=== PATIENT | female | born 1990 | race Caucasian/White ===

== ENCOUNTER → 2016-06-08 17:43 | Outpatient (CLI) | payer MEDICAID ==
[~2016-06-08 17:43] MED LIST: IBUPROFEN600 MG PO; PERCOCET 5-3251 TAB PO; PRENATAL COMPLE1 TAB PO
[2016-07-25 09:18] VITALS: BMI 32.2
== END | disposition home or self-care (01) ==
LOC: D.LDO 17:43
DX: O36.8130 Decreased fetal movements, third trimester, not applicable or unspecified (principal); Z3A.31 31 weeks gestation of pregnancy

== ENCOUNTER 2016-06-30 22:09 | Outpatient (CLI) | payer MEDICAID ==
[2016-06-30 22:24] LABS: APPEARANCE HAZY (CLEAR); BILIRUBIN NEGATIVE (NEGATIVE); COLOR YELLOW (YELLOW); GLUCOSE NEGATIVE (NEGATIVE); KETONE SMALL mg/dL (NEGATIVE); LEUKOCYTE ESTERASE TRACE (NEGATIVE); NITRITE NEGATIVE (NEGATIVE); PROTEIN NEGATIVE (NEGATIVE); UROBILINOGEN NORMAL (NORMAL)
[2016-06-30 22:28] LABS: BACTERIA MODERATE /hpf (NONE SEEN); MUCUS <1+ /lpf (NONE SEEN); RED CELLS - URINE 0-5 /hpf (0-5)
[2016-07-25 09:18] VITALS: BMI 32.2
== END 2016-06-30 22:54 | disposition home or self-care (01) ==
LOC: D.LDO 22:09
PROVIDERS: Obstetrics & Gynecology
DX: Z34.83 Encounter for supervision of other normal pregnancy, third trimester (principal); Z3A.34 34 weeks gestation of pregnancy; R10.9 Unspecified abdominal pain

== ENCOUNTER → 2016-07-10 12:52 | Outpatient (CLI) | payer MEDICAID ==
[2016-07-10 14:30] LABS: BASOPHILS 0.1 % (0.0-2.0); EOSINOPHILS 1.2 % (0-7); HEMATOCRIT 32.2 % (36.0-48.0); HEMOGLOBIN 11.3 g/dL (12-16); IMMATURE GRANULOCYTES 0.3 % (0-5); LYMPHOCYTES 20.4 % (15-50); MCH 32.8 pg (26.0-34.0); MCHC 35.1 g/dL (31.0-37.0); MCV 93.3 fL (80.0-100.0); MONOCYTES 8.9 % (2-11); NEUTROPHILS 69.1 % (40-80); PLATELET COUNT 192 10x3/uL (130-400); RBC 3.45 10x6/uL (4.00-5.40); RDW 14.1 % (11.5-14.5); WBC 7.6 10x3/uL (4.8-10.8)
[2016-07-10 15:10] LABS: ALBUMIN 2.6 g/dL (3.4-5.0); ALKALINE PHOSPHATASE 92 U/L (46-116); ALT (SGPT) 27 U/L (10-68); BILIRUBIN - DIRECT 0.12 mg/dL (0.00-0.30); BILIRUBIN - INDIRECT 0.31 mg/dL (0.00-1.00); BILIRUBIN - TOTAL 0.43 mg/dL (0.2-1.3); CALC OSMOLALITY 275 mosm/kg (275-300); CALCIUM 8.1 mg/dL (8.5-10.1); CARBON DIOXIDE 22.8 mmol/L (21.0-32.0); CHLORIDE - SERUM 105 mmol/L (98-107); CREATININE - SERUM 0.4 mg/dL (0.6-1.3); GLUCOSE 90 mg/dL (74-106); POTASSIUM - SERUM 3.3 mmol/L (3.5-5.1); SODIUM 140 mmol/L (136-145); UREA NITROGEN 4 mg/dL (7-18); URIC ACID 3.5 mg/dL (2.6-7.2); eGFR NON AFRICAN AMERICAN > 90 mL/min (90-120)
[2016-07-25 09:18] VITALS: BMI 32.2
== END | disposition home or self-care (01) ==
LOC: D.LDO 12:52
PROVIDERS: Obstetrics & Gynecology
DX: O16.3 Unspecified maternal hypertension, third trimester (principal); Z3A.35 35 weeks gestation of pregnancy

== ENCOUNTER → 2016-07-19 10:20 | Outpatient (CLI) | payer MEDICAID ==
[2016-07-19 12:38] LABS: APPEARANCE SLT CLOUDY (CLEAR); COLOR YELLOW (YELLOW)
[2016-07-19 12:39] LABS: BACTERIA MODERATE /hpf (NONE SEEN); BILIRUBIN NEGATIVE (NEGATIVE); EPITHELIAL CELLS 0-5 /hpf (0-5); GLUCOSE NEGATIVE (NEGATIVE); KETONE NEGATIVE (NEGATIVE); LEUKOCYTE ESTERASE NEGATIVE (NEGATIVE); MUCUS <1+ /lpf (NONE SEEN); NITRITE NEGATIVE (NEGATIVE); PROTEIN NEGATIVE (NEGATIVE); RED CELLS - URINE 0-5 /hpf (0-5); UROBILINOGEN NORMAL (NORMAL); WHITE CELLS - URINE OCC /hpf (0-5)
[2016-07-19 12:40] LABS: AMORPHOUS SEDIMENT <1+ /lpf (NONE SEEN)
== END | disposition home or self-care (01) ==
LOC: D.LDO 10:20
PROVIDERS: Specialist
DX: Z34.83 Encounter for supervision of other normal pregnancy, third trimester (principal); Z3A.37 37 weeks gestation of pregnancy; R10.2 Pelvic and perineal pain; M54.9 Dorsalgia, unspecified

== ENCOUNTER → 2016-07-20 12:40 | Outpatient (CLI) | payer MEDICAID | END | disposition home or self-care (01) | LOC: D.LDO 12:40 | DX: Z34.83 Encounter for supervision of other normal pregnancy, third trimester (principal); Z3A.37 37 weeks gestation of pregnancy ==

== ENCOUNTER → 2016-07-24 08:50 | Outpatient (CLI) | payer MEDICAID ==
[~2016-07-24 08:50] MED LIST changes: -IBUPROFEN600 MG PO; -PERCOCET 5-3251 TAB PO
[2016-07-24 09:18] LABS: APPEARANCE HAZY (CLEAR); BILIRUBIN NEGATIVE (NEGATIVE); COLOR YELLOW (YELLOW); GLUCOSE NEGATIVE (NEGATIVE); KETONE NEGATIVE (NEGATIVE); LEUKOCYTE ESTERASE NEGATIVE (NEGATIVE); NITRITE NEGATIVE (NEGATIVE); PROTEIN NEGATIVE (NEGATIVE); UROBILINOGEN NORMAL (NORMAL)
[2016-07-25 09:18] VITALS: BMI 32.2
== END | disposition home or self-care (01) ==
LOC: D.LDO 08:50
PROVIDERS: Specialist
DX: Z34.83 Encounter for supervision of other normal pregnancy, third trimester (principal); Z3A.37 37 weeks gestation of pregnancy

== ENCOUNTER 2016-07-24 20:15 | Inpatient (IN) | payer MEDICAID ==
[~2016-07-24] VITALS: Ht 167.6 cm; Wt 90.5 kg
[2016-07-24 21:11] LABS: HEMATOCRIT 33.1 % (36.0-48.0); HEMOGLOBIN 11.8 g/dL (12-16); MCH 33.6 pg (26.0-34.0); MCHC 35.6 g/dL (31.0-37.0); MCV 94.3 fL (80.0-100.0); MEAN PLATELET VOLUME 10.6 fL (7.4-10.4); RBC 3.51 10x6/uL (4.00-5.40); RDW 14.2 % (11.5-14.5); WBC 9.2 10x3/uL (4.8-10.8)
[2016-07-24] MEDS ORDERED: PRENATAL COMPLE1 TAB PO (23:47)
[2016-07-24 23:49] VITALS: BP 126/70; BMI 32.2
--- NOTE | 2016-07-25 02:30 | NUR ---
PT REMAINS IN ROOM 1277 AWAITING BTL FOR EARLY TO MID DAY TODAY. PT KEPT NPO FOR PROCEDURE AND VERBALIZES UNDERSTANDING. PT RESTING WITH EYES CLOSED AT THIS TIME. RESPIRATIONS REGULAR, NO S/S OF DISTRESS NOTED. S/O REMAINS AT BEDSIDE. BED IN LOW POSITION WITH UPPER SIDE RAILS RAISED X2. CL AND PHONE WITHIN PT REACH. WILL CONT TO MONITOR.
--- NOTE | 2016-07-25 03:10 | NUR ---
INFANT BROUGHT TO ROOM BY RN FOR . RN REMAINED AT BEDSIDE, LATCHED WELL, PT DENIES NEED FOR ASSISTANCE. NURSING AT THIS TIME AND SWALLOWING WITH GOOD SUCK NOTED. CL PLACED WITHIN PT REACH, INSTRUCTED TO CALL IF ASSISTANCE WAS NEEDED, VERBALIZED UNDERSTANDING. S/O AT BEDSIDE.
--- NOTE | 2016-07-25 03:47 | NUR ---
ROUNDS MADE. PT SITTING IN HIGH FOWLERS POSITION WITH SKIN TO SKIN, REPORTS THAT NURSED FOR 20 MINUTES ON RIGHT BREAST AND 10 MINUTES ON LEFT. REQUEST BE TAKEN BACK TO NBN. RN ASSISTED TO BATHROOM, PT VOIDED 400 MLS. MODERATE AMT RUBRA LOCHIA NOTED TO PERIPAD, NO CLOTS NOTED. ASSISTED BACK TO BED. DENIES NEEDS AT THIS TIME. S/O REMAINS AT BEDSIDE. BED IN LOW POSITION WITH UPPER SIDE RAILS RAISED X2. CL AND PHONE WITHIN REACH.
--- NOTE | 2016-07-25 04:26 | NUR ---
NBN REPORTS THAT INFANT IS FUSSY AND UNCONSOLABLE AND CONT TO ROOT IN CRIB. RN TAKES INFANT BACK TO PT. PT POSITIONED AND INFANT LATCHED ONTO LEFT BREAST AND NURSING WHEN RN LEFT ROOM. PT DENIES NEED FOR ASSISTANCE AND STATES THAT SHE WILL CALL USING THE CALL LIGHT.
--- NOTE | 2016-07-25 05:03 | NUR ---
ROUNDS MADE. PT BONDING WITH . REQUESTS THAT BE TAKEN BACK TO NBN AT THIS TIME. DENIES NEEDS AT THIS TIME. SPOUSE REMAINS AT BEDSIDE. BED IN LOW POSITION WITH UPPER SIDE RAILS RAISED X2. CL AND PHONE WITHIN PT REACH.
--- NOTE | 2016-07-25 06:38 | NUR ---
NEW BAG LR HUNG @ 125 MLS/HR. EPIFOAM, TUXS, AND DERMAPLAST GIVEN WITH VERBAL INSTRUCTION ON USE. PT VERBALIZED UNDERSTANDING, STATES THAT SHE REMEMBERS USING THEM FROM PREVIOUS . S/O REMAINS AT BEDSIDE. BED IN LOW POSITION WITH UPPER SIDE RAILS RAISED X2. DENIES PAIN AT THIS TIME. CL AND PHONE WITHIN REACH.
--- NOTE | 2016-07-25 07:33 | NUR ---
infant taken to room via crib by nursery nurse.
[2016-07-25 08:15] VITALS: BP 114/66
--- NOTE | 2016-07-25 08:15 | NUR ---
AM assessment completed as charted on flowsheet. Pt denies pain or discomfort at this time and states understanding that pain meds are ordered but not scheduled medications. Fundus firm at u/1 with light bleeding noted to rai pad, she denies any clots with voids, denies any questions about rai care. Explained that bilateral tubal ligation would not happen until around noon or later today and she confirms she wants to wait and have it done today. Reenforced that she can not have anything to eat or drink includes icechips until after surgery, she states"I'm ok with that" IV saline locked at this time and will restart prior to her surgery. Denies any needs or questions at this time. Side rails up x2 with phone and call light in reach.
[2016-07-25 09:18] VITALS: Ht 167.6 cm; Wt 90.5 kg
--- NOTE | 2016-07-25 09:41 | NUR ---
Jacklyn Lynn [birth year] S: Patient states she feels well, we be having her tubes tied some time today, wasn't able to do so last night because she delivered at 12am. States this is her second baby, two girls, did nurse her other daughter. O: Patient sitting up in bed holding , sleeping, FOB walked in room. Congratulated on delivery, asked how is nursing, are her nipples sore? Patient states nursing is good, infant latches great, her left nipple is kale sore when baby first latches. Pain and shouldn't be associated, sensitive: is normal but not pain. Explain how to verify is latched correct. Turn baby tummy to tummy, nose opposite of nipple, gently support head and allow infant to self-latch. If she still experiences pain let us know, we could observe infant latch. Encouraged to continue to latch on demand, upon showing signs of feeding cues ( provided handout and explain what feeding cues are). Supply and demand, what infant takes out your body will make more of. Explain breast milk composition. Provided handouts and explained on what to expect the first week, engorgement, starting a feeding, waking a sleeping baby, and positions for . Asked if she had any questions, concerns, or needs, all declined. Will follow up. A: Patient appears confident with . P: Continue to support exclusively . Octavio Jean, CLC
--- NOTE | 2016-07-25 09:45 | NUR ---
Pt sitting up with to breast. Denies pain or discomfort and has no needs at this time. Call light in reach with side rails up x 2.
--- NOTE | 2016-07-25 10:44 | NUR ---
Pt sitting on couch visiting with family, infant in room at this time. Denies pain or discomfort. Pt intructed that she will need to remove all jewlery prior to going up to surgery. She does so at this time and gives them to her sig other. No needs voiced at this time.
--- NOTE | 2016-07-25 11:45 | NUR ---
Received call to pre-op pt for surgery. Pt up to bathroom as instructed to empty her bladder. IV flushed easily with 5ml NS, LR reconnected and infusing by gravity at this time. SCD's placed on lower legs and there function explained to pt. VSS as charted on flowsheet. Anesthesia contacted for pre-op orders, spoke with A Long silo tender. Pt denies any questions or concerns. taken to NBN via crib per pt and spouse request.
--- NOTE | 2016-07-25 12:10 | NUR ---
Preop meds given as charted on emar and surgery checklist completed. Pt able to transfer self to [facility] without any assistance. 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
--- NOTE | 2016-07-25 14:20 | NUR ---
Pt received to room 1257 by bed, transfered with assistance. Pt is awake and alert, rates pain 3/10 and states feels more cramping and some burning. Motrin offered and she is agreeable. she is able to move her toes only at this time. Post vital signs stable and charted/verified on flowsheet. She denies nausea and ask for sprite to drink, this is provided along with orange jello. Side rails up x 2 with call light in reach and family at bedside.
[2016-07-25 14:22] VITALS: BP 114/70
[2016-07-25 14:30] VITALS: BP 113/69
--- NOTE | 2016-07-25 14:30 | NUR ---
Motrin given as charted on emar. White board updated, pt calls nursery so that infant can be brought to room. Thank you box given at this time. Pt denies any other needs. Side rails up x 2 with call light in reach.
[2016-07-25 14:45] VITALS: BP 106/63
--- NOTE | 2016-07-25 15:15 | NUR ---
pt tilted to her right side with infant in crib at bedside. Denies pain or discomfort. large cup of ice provided per request, no other needs at this time.
--- NOTE | 2016-07-25 16:46 | NUR ---
Pt sitting up in bed wiht to breast. She is beginning to move both legs more but continue to complain of numbness. Denies pain at this time. Large ice water provided per request. Side rails up x 2 with phone and call light in reach. Family at bedside.
[2016-07-25 16:53] LABS: BASOPHILS 0.2 % (0.0-2.0); EOSINOPHILS 0.5 % (0-7); HEMATOCRIT 31.4 % (36.0-48.0); HEMOGLOBIN 10.9 g/dL (12-16); IMMATURE GRANULOCYTES 0.3 % (0-5); LYMPHOCYTES 16.8 % (15-50); MCH 33.5 pg (26.0-34.0); MCHC 34.7 g/dL (31.0-37.0); MEAN PLATELET VOLUME 10.4 fL (7.4-10.4); MONOCYTES 6.8 % (2-11); NEUTROPHILS 75.4 % (40-80); PLATELET COUNT 205 10x3/uL (130-400); RBC 3.25 10x6/uL (4.00-5.40); RDW 14.3 % (11.5-14.5); WBC 9.4 10x3/uL (4.8-10.8)
[2016-07-25 17:00] LABS: MCV 96.6 fL (80.0-100.0)
--- NOTE | 2016-07-25 18:39 | NUR ---
Pt continue to complain of numbness in both thighs, she is able to raise her bottom up but is not steady. She is agreeable to use a bedpan. Privacy provided by friends/family leaving room. Voids 300ml dark urine on bedpan without complaint. Warm wet wash cloths provided and pt does rai care per herself, than she puts on rai pad/panties. Chux and towels changed. SCD's removed since she is moving herself around in bed. Rates pain at 3/10 pain med offered but pt ask that wait until after infant feeding at 1915 and understands this will be reported to pm shift. Denies any needs at this time. Infant in room and friends allowed back in room. Side rails up x 2 with call light in reach.
--- NOTE | 2016-07-25 19:15 | NUR ---
ASSESSMENT COMPLETE. PT SITTING UP IN BED INFANT. REPORTING PAIN 5/10 IN INCISIONAL AREA. PRN PAIN MED GIVEN ORDERED. SEE EMAR. PT ALERT AND ORIENTED X3. TALKING TO S/O THAT IS PRESENT IN ROOM. LUNGS CTA IN ALL LOBES BILATERALLY. RESPIRATIONS EASY AND UNLABORED. BS PRESENT X4. REPORTS IS PASSING GAS. BANDAGES TO INCISION C/D/I. AREA WITHOUT S/S INFECTION. FUNDUS FIRM AND MIDLINE 1FB BELOW UMBILLICUS. LOCHIA SCANT-SMALL. NO CLOTS. PT PERFORMING OWN MIS CARE. HAS +2 PITTING EDEMA TO BLE. HAS FULL SENSATION TO BLE. INSTRUCTED TO ASK FOR ASSISTANCE PRIOR TO AMBULATING. PT AGREES. PT IS GOING TO SHOWER LATER TONIGHT. IV TO R HAND DC'D WITH TIP INTACT. BANDAGE AND PRESSURE TO SITE. PT TOLERATED WELL. LEMON QUECHAN SODA GIVEN PER REQUEST. BED LOW. SR UP X2. CALL LIGHT IN REACH. NO OTHER NEEDS VOICED.
--- NOTE | 2016-07-25 20:30 | NUR ---
Pt into shower with assistance of . Has linens for shower. Provided with toothbrush and toothpaste per pt request. Denies any other needs or assistance.
--- NOTE | 2016-07-25 20:50 | NUR ---
Pt completed shower without difficulty. S/O assisted. Provided s/o with linens for couch. Pt reports feeling better after showering. Denies any needs or concerns. Call light in reach. Bed low. SR upx2.
[2016-07-25 21:00] VITALS: BP 125/68
--- NOTE | 2016-07-25 22:02 | NUR ---
Pt requesting prn motrin for cramping. See EMAR for social media developer. Denies any other needs or concerns. S/O at bedside.
--- NOTE | 2016-07-26 | NUR ---
Pt resting with eyes closed. Call light in reach. Bed low. SR upx2. S/O in room also sleeping.
--- NOTE | 2016-07-26 00:01 | NUR ---
Fundus firm and midline. 1fb below umbillicus. Locha scant-small. No clots.
--- NOTE | 2016-07-26 01:04 | NUR ---
Pt requesting prn pain med. States "my stomach is sore". PRN med administered as ordered. See EMAR. Denies any other needs or concerns. Holding in arms. Call light in reach. Bed low. SR upx2.
--- NOTE | 2016-07-26 03:00 | NUR ---
PT sleeping. Call light in reach. Bed low. SR upx2.
--- NOTE | 2016-07-26 04:45 | NUR ---
Pt requesting prn pain med for cramping. See EMAR for medical center manager. Pt also showed nurse bandage on abd is coming off. Appears to have gotten wet during shower last night and began to peel off from skin. Removed old dressing and applied clean dressing (bandaid) to site. Site WNL. No redness/edema at site. No s/s infection. Encouraged handwashing prior to touching area and reviewed care of incision. Pt verbalizes understanding to all. No other questions or concerns voiced. Bed low. SR upx2. Call light in reach.
[2016-07-26 04:56] VITALS: BP 127/76
[2016-07-26 06:14] LABS: RAPID PLASMA REAGIN Non Reactive (Non Reactive)
--- NOTE | 2016-07-26 06:20 | NUR ---
Pt sitting up in bed. Denies any needs or concerns. Fundus firm and midline. 1FB below umbillicus. Scant lochia. Rai care being performed per pt. Denies questions r/t rai care.
--- NOTE | 2016-07-26 07:45 | NUR ---
Pt sitting in chair at bedside with infant to breast, denies needs at this time. Will return to complete am assessment when pt has finished feeding.
[2016-07-26] MEDS ORDERED: IBUPROFEN600 MG PO (08:53)
[2016-07-26] MEDS ORDERED: PERCOCET 5-3251 TAB PO (08:54)
--- NOTE | 2016-07-26 09:30 | NUR ---
Am assessment completed as charted on flowsheet. fundus firm at u/u with light bleeding per pt and no clots noted. Bandage to umbilical area intact, clean and dry. Pt c/o being sore and "tender" at umbilical area and understands that is from tubal ligation, rates at 3/10 and request Iburporfen if possible. Denies any other needs at this time. Family at bedside, side rails up x 2 with phone and call light in reach.
[2016-07-26 10:00] VITALS: BP 130/82
--- NOTE | 2016-07-26 10:00 | NUR ---
Meds given as charted on emar. Additional rai pads and mesh pants placed in bathroom.
--- NOTE | 2016-07-26 11:30 | NUR ---
Called to room, pt request pain med for abd cramping and burning that she said has gotten worse since she has been up walking, reassured this is expected. Rates pain at 7/10, Percocet 10/325 given as charted on emar.
--- NOTE | 2016-07-26 12:30 | NUR ---
Pt rates pain at 2/10. Nursery nurse at bedside to discharge . Pt will call when d/c completed.
--- NOTE | 2016-07-26 13:00 | NUR ---
Verbal and written d/c instructions given without question or concerns. Pt given printed scripts for Percocet 5/325mg and Motrin 600mg with monographs on each. States understanding of post care at home and s/s of infection to watch for. buckled into carrier and volunteer notified for wheelchair.
--- NOTE | 2016-07-26 13:07 | NUR ---
pt taken out to private car by wheelchair holding in carrier. Home with family.
--- NOTE | 2016-07-27 13:38 | OP ---
PATIENT NAME: MANJEET MARTE MEDICAL RECORD: [id number] :89 LOCATION:[id number] ADMISSION DATE:07/24/16 SURGEON: DEMI KHAN MD DATE OF OPERATION: 07/25/2016 PREOPERATIVE DIAGNOSES: 1. Status post term spontaneous vaginal delivery. 2. Desired sterility. POSTOPERATIVE DIAGNOSES: 1. Status post term spontaneous vaginal delivery. 2. Desired sterility. SURGEON: Demi Khan MD ANESTHESIA: Epidural anesthesia with Javy Rodriguez CRNA PROCEDURE: sterilization via bilateral distal salpingectomy/fimbriectomy. FINDINGS: Normal appearing uterus, ovaries and tubes bilaterally. DESCRIPTION OF PROCEDURE: After informed consent was given, the patient was taken to the operating room where epidural anesthesia was then placed, bolused and found to be adequate. She was placed in a dorsal supine position. A Mckeon catheter was already in place with clear urine return noted. She was prepped and draped sterilely. An infraumbilical incision was then made with the scalpel in a transverse fashion and carried down to the underlying layer of fascia. The fascia was incised in the midline and extended bilaterally with the Reyna scissors. The rectus muscles were identified. The peritoneum was identified and grasped with 2 hemostats. This was entered sharply with Metzenbaum scissors. The [facility] retractors were then utilized to allow visualization of the left fallopian tube. The left fallopian tube was visualized, grasped with a Lockridge clamp and followed out to the fimbriated edge. A second Lockridge was used to grasp the fallopian tube near the fimbria and these were held gently on upward traction as a defect was created in the mesosalpinx with the Bovie cautery, 2 hemostats were then used to clamp the more proximal portion of the fallopian tube and the distal mesosalpinx. The Bovie cautery was then used to excise the fallopian tube and fimbria and a Pap this was passed off the field as specimen. The 2 pedicles were suture ligated with 3-0 Vicryl stick ties. Excellent hemostasis was noted. Attention was then turned to the opposite side where the right fallopian tube was visualized, grasped with a Lockridge clamp, followed out to its fimbriated edge and then grasped once again near the fimbria themselves. The Babcocks were slightly elevated to allow exposure of the mesosalpinx, defect was then created in the mesosalpinx with the Bovie cautery in 2 [address] and 3 hemostats were used to then clamp the more proximal portion of the fallopian tube and the mesosalpinx in the more distal and the distal regions. The Bovie cautery was then used to excise the fallopian tube and fimbria and this was passed off the field as specimen. The 3 pedicles were suture ligated with 3-0 Vicryl stick ties. Excellent hemostasis was noted. The opposite adnexa was again observed and noted to be hemostatic. The fascia and peritoneum were closed in 1 layer with 0 Vicryl in a running fashion, locking the first suture. The subcutaneous tissue was closed in 2 layers with 3-0 Vicryl and the skin was closed with 3-0 Monocryl in a subcuticular fashion. Dermabond and dressing were applied. Clear urine was noted at completion of the OPERATIVE REPORT [id number] MANJEET MARTE procedure. The patient tolerated procedure well. Sponge, lap, needle and instrument counts reported correct times 2. ESTIMATED BLOOD LOSS: Minimal. SPECIMENS: 1. Left distal fallopian tube/fimbria. 2. Right distal fallopian tube/fimbria. COMPLICATIONS: None. TRANSINT:[id number] Voice Confirmation ID: [id number] DOCUMENT ID: [id number] DEMI KHAN MD at 1338 CC: [id number] DICTATION DATE: 07/26/16901 PLANNING AIDE: 07/26/16920 DIS IN 07/26/16 [id number] [place] [address]
== END 2016-07-26 13:08 | disposition home or self-care (01) | DRG 767 ==
LOC: D.LDO 20:15 → D.LD 20:37
PROVIDERS: ADMIT Specialist
PROC: 0UB70ZZ Excision of Bilateral Fallopian Tubes, Open Approach (ICD-10-PCS; 2016-07-25)
PROC: 0W8NXZZ Division of Female Perineum, External Approach (ICD-10-PCS; 2016-07-25)
PROC: 10E0XZZ Delivery of Products of Conception, External Approach (ICD-10-PCS; principal; 2016-07-25 09:30)
DX: O99.214 Obesity complicating childbirth (principal); Z3A.37 37 weeks gestation of pregnancy; Z37.0 Single live birth; Z30.2 Encounter for sterilization; Z30.09 Encounter for other general counseling and advice on contraception; Z68.32 Body mass index [BMI] 32.0-32.9, adult; O26.893 Other specified pregnancy related conditions, third trimester; Z67.91 Unspecified blood type, Rh negative; O66.9 Obstructed labor, unspecified; Z87.891 Personal history of nicotine dependence